=== PATIENT | female | born 1985 | race Caucasian/White ===

== ENCOUNTER → 2019-01-25 12:03 | Outpatient (CLI) | payer OTHER, SELFPAY ==
[2017-10-08 07:57] VITALS: BMI 34.2
--- NOTE | 2019-01-25 12:10 | RAD_ITS ---
STUDY: X-RAY - LEFT ANKLE REASON FOR EXAM: Female, 33 years old. Left ankle pain following a fall. TECHNIQUE: 3 view(s) of the ankle. COMPARISON: None. FINDINGS: Normal visualized distal tibia and fibula. Normal medial and lateral malleoli. Normal tibiotalar articulation and ankle mortise. Small plantar spur. The visualized subtalar, talonavicular, calcaneocuboid and tarsal articulations are normal. Lateral soft tissue swelling. RAD/Ankle min 3 Views IMPRESSION: Lateral soft tissue swelling. Electronically Signed: Lee Osborne, at 12:23 EDT , Service support ,
== END ==
PROVIDERS: Family Provider Family Medicine; PCP Family Medicine; Referring Provider Family Medicine; Visit Provider Family Medicine
DX: S93.402A Sprain of unspecified ligament of left ankle, initial encounter (principal)
CPT/HCPCS: 73610

== ENCOUNTER → 2019-04-02 11:51 | Outpatient (CLI) | payer OTHER, SELFPAY ==
[2017-10-08 07:57] VITALS: BMI 34.2
[2019-04-02 13:50] LABS: Absolute Lymphocyte Count 2.62 X10^3/uL (0.83-4.51); Absolute Neutrophil Count 5.4 X10^3/uL (2.0-7.7); Basophil# 0.06 X10^3/uL; Basophil% 0.7 % (0-1); Eosinophil# 0.09 X10^3/uL; Hematocrit 43.6 % (37-47); Hemoglobin 13.6 g/dL (12.0-15.0); Lymphocyte # 2.62 X10^3/ul (4.0); Lymphocyte % 29.6 % (19-41); Mean Corp Hgb Conc 31.2 g/dL (32-36); Mean Corpuscular Hgb 27.3 pg (27.0-32.0); Mean Corpuscular Volume 87.4 fL (81-99); Mean Platelet Vol. 9.9 fl (6.2-12.0); Monocyte# 0.63 X10^3/uL; Monocyte% 7.1 % (0-10); NRBC Flagged by Analyzer 0 % (0-5); Neutrophil # 5.42 X10^3/uL (2.7-7.7); Neutrophil % 61.4 % (47-70); Platelet Count 245 K/mm3 (150-450); RBC Distribution Width CV 13.6 % (11.6-14.6); RBC Distribution Width SD 43.6 fl (35.1-43.9); Red Blood Count 4.99 M/mm3 (4.2-5.4); White Blood Count 8.8 K/mm3 (4.4-11.0)
[2019-04-02 14:04] LABS: Anion Gap 8 (5-15); BUN 7 mg/dL (7-18); BUN/Creat Ratio 9.2 RATIO (10-20); Calcium,Total 9.2 mg/dL (8.5-10.1); Chloride 105 mmol/L (98-107); Cholesterol 227 mg/dL (200); Creatinine, Serum 0.76 mg/dL (0.55-1.02); EST Glomerular Filtration Rate 91 mL/min (>60); Est Glom Filt Rate - Afr Amer 110 mL/min (>60); Glucose 81 mg/dL (74-106); High Density Lipoprotein 48 mg/dL; Sodium Level 142 mmol/L (136-145); Triglycerides 58 mg/dL; Very Low Density Lipoprotein 12 mg/dL (5-40)
== END ==
PROVIDERS: Family Provider Family Medicine; PCP Family Medicine; Referring Provider Family Medicine; Visit Provider Family Medicine
DX: R07.89 Other chest pain (principal)
CPT/HCPCS: 36415; 80048; 80061; 85025

== ENCOUNTER 2019-10-12 10:18 | Day surgery (SDC) | payer OTHER, SELFPAY ==
[2019-09-13 10:09] VITALS: BMI 34.2
--- NOTE | 2019-09-19 02:13 | HP_ITS ---
Intake Vital Signs 09/13/19 Height 5 ft 3 in 09/13/19 Weight: 201 lb 09/13/19 BMI 35.6 09/13/19 BP 113/77 09/13/19 Blood Pressure Location Rt brachial 09/13/19 Position Sitting 09/13/19 Respiration 18 09/13/19 Pulse 63 09/13/19 Pulse Source Monitor 09/13/19 Temp 98.2 F 09/13/19 Temp Source Oral 09/13/19 Pulse Oximetry (%) 99 09/13/19 Oxygen Delivery Method room air Intake Visit Reasons: Discuss C-Scope family hx of colon cancer Educational Sign Language Interpreter Required: No Is patient in pain?: No Allergies influenza A (H5N1) virus vaccine mo Allergy (Intermediate, Verified 09/13/19 10:09) rash/chest tightness acetaminophen [From Darvocet-N] Allergy (Verified 09/13/19 10:08) Other Penicillins Allergy (Verified 09/13/19 10:08) Rash propoxyphene [From Darvocet-N] Allergy (Verified 09/13/19 10:08) Other Medications NK 10/03/17 [History Confirmed 09/13/19] PFSH Medical History Constipation (Acute) Family history of colon cancer in mother (Acute) Hemorrhoids (Acute) Surgical History History of cholecystectomy (Acute) Hx of section (Acute) Knee arthropathy (Acute) Family History (Updated 09/13/19 @ 10:06 by Deloris Medley) Mother Colon cancer High cholesterol Father CAD (coronary artery disease) Diabetes Grandmother Diabetes Heart disease Colon cancer Hypertension Grandfather Heart disease Colon cancer Sister Cancer skin cancer Social History (Updated 09/19/19 @ 14:13 by Donna Webster MD) Smoking Status: Former smoker alcohol intake: never substance use type: does not use HPI HPI HPI: PHUONG TORIBIO, is a 34 F who presents to the office today for HPI HPI Surgical H&P: Yes HPI: PHUONG TORIBIO, is a 34 F who presents to the office today for colonoscopy due to family history. Patient states that her mom was diagnosed with colon cancer age 40 for her maternal grandfather is also diagnosed in the late 50s early 60s, her maternal great grandmother was diagnosed in her later 60s. Patient has never had a colonoscopy denies any abdominal pain denies any reflux. Patient states she does have some external hemorrhoids and about 6 months ago did have some pressure pain for a few days due to that. Patient states she may have occasional constipation but typically goes almost every other day with a bowel movement. Patient denies any blood in stool. ROS General General: No weight change, appetite, fatigue, colon cancer, breast cancer or weakness HEENT HEENT: Yes eye injury; no difficulty swallowing, eye surgery, swollen glands or hoarseness Additional Details: corneal abrasion Endo Endocrine: No thyroid disease, diabetes mellitus, thyroid cancer, Hair loss, heat intolerance or cold intolerance Skin Skin: No rash or changing moles Breast Breast: No left breast lump, right breast lump, nipple discharge, breast pain, abnormal mammogram, abnormal US or breast enlargement Musc Musculoskeletal: No back problems, arthritis, rheumatoid arthritis, gout or joint pain Cardio Cardiovascular: No murmur, pacemaker, heart disease, atrial fibrillation, high blood pressure, heart attack, heart stent, palpitations, shortness of breat with exertion or chest pain Psych Psychiatric: No depression, anxiety or hearing voices Resp Respiratory: No shortness of breath, No sleep apnea, No cough, No COPD, No asthma, No emphysema, No wheezing Gastro Gastrointestinal: No abdominal pain, No nausea or vomiting, No diarrhea, Yes constipation, Yes blood in stool, No acid reflux, Yes hemorrhoids, No ulcers, Yes gallbladder problem, No black,tarry stools Geremias Hematologic: No blood thinners, No blood disorders, No bleeding, No anemia, No blood clots Neuro Neurologic: No system reviewed and no additional complaints, except as docu, No as per HPI, No abnormal walking, No abnormal hearing, No abnormal movements, No abnormal speech, No behavioral changes, No burning sensations, No confusion, No seizure-like activity, No unsteadiness, No dizziness, No localized weakness, No frequent falls, No headache(s), No lack of coordination, No loss of vision, No memory loss, No numbness, No other visual disturbances, No radiating pain, No restless legs, No sensory deficit, No fainting, No tingling, No tremor(s), No weakness, No other Exam Const General: cooperative, comfortable, no acute distress Chest Breast Palpation: No nipple discharge Resp Effort & Inspection: normal respiratory effort Cardio Rate: regular rate Heart Sounds: no murmurs GI Inspection: non-distended Palpation: soft, no guarding, nontender Neuro Cranial Nerves: CN's II-XI intact bilaterally Psych Affect: normal affect Assessment & Plan Problems 1. FH: colon cancer in relative <50 years old Z80.0 Mom was 44 and diagnosed for colon cancer, patient is due for colonoscopy screening and will be at least every 5 years Plan I have discussed the above with the patient. I have offered the patient colonoscopy for evaluation. I have explained the risks/benefits of the procedure and described the procedure. I have discussed the risks with the patient, including but not limited to: infection, bleeding, perforation of the GI tract requiring emergency surgery, inability to complete the procedure, injury to any internal organs, complications of anesthesia, etc. - the patient understands and agrees to proceed. I have answered all the patient's questions to the patient's satisfaction and the patient has no further questions. The patient has been given instructions for the colon cleansing preparation. One day of clears, MiraLAX Dulcolax split prep. Donna Webster M.D. Pager: [phone] [facility] [address] [place] [address], [facility], [address] [place] [address] Office: [phone] Orders Orders: Colonoscopy Today Plan Detail Follow Up We will schedule colonoscopy Coding Level of Care Code Off vis,new,level 3 Diagnoses FH: colon cancer in relative <50 years old Z80.0 09/19/19 1413 <Electronically signed by Donna Medina am, MD> Date _ Donna Webster MD I have re-examined the patient. There are no clinical changes since date of exam.
[2019-10-12] VITALS (13 sets, daily range): BP systolic 106–129; BP diastolic 67–84; PULSE 45–79; RESP 14–18; TEMP 36.1–36.9; O2SAT 95–100; BMI 32.8
[2019-10-12] MEDS: Lactated Ringers 1,000 ML 100 ML IV ×2 (11:01→12:21)
--- NOTE | 2019-10-12 11:46 | OP.CCLET_ITS ---
10/12/2019 Wolf Lr MD [address] [id number] Re : Colonoscopy procedure for Nav Ziegler Dear Dr. Lr This procedure was performed on Saturday, October 12, 2019. My impressions and recommendations are as follows: Impressions : - Diverticulosis in the sigmoid colon. - Internal hemorrhoids. - The entire examined colon is normal. - No specimens collected. Recommendations : - Discharge patient to home. - High fiber diet. - Continue present medications. - Repeat colonoscopy in 3 - 5 years for screening purposes. My findings are described in the full procedure note, which is enclosed. If I can be of further assistance, please feel free to contact me at Doctor phone number(s): , Work: . Sincerely, MD Donna Tomas MD 10/12/2019 11:45:36 AM This report has been signed electronically.
--- NOTE | 2019-10-12 11:46 | OP.COLON_ITS ---
Patient Name: Nav Ziegler Procedure Date: 10/12/2019 11:11 AM Date of : 1985 Age: 34 Procedure: Colonoscopy Indications: Screening in patient at increased risk: Colorectal cancer in mother before age 60--early 40s, Colon cancer screening in patient at increased risk: Family history of colorectal cancer in multiple 2nd degree relatives Providers: Donna Webster MD Referring MD: Wolf Lr MD Medicines: Monitored Anesthesia Care Patient Profile: This is a 34 year old female. Last Colonoscopy: none. The patient's first colonoscopy is today. Complications: No immediate complications. Procedure: Pre-Anesthesia Assessment: - Prior to the procedure, a History and Physical was performed, and patient medications and allergies were reviewed. The patient's tolerance of previous anesthesia was also reviewed. The risks and benefits of the procedure and the sedation options and risks were discussed with the patient. All questions were answered, and informed consent was obtained. Prior Anticoagulants: The patient has taken no previous anticoagulant or antiplatelet agents. ASA Grade Assessment: II - A patient with mild systemic disease. After reviewing the risks and benefits, the patient was deemed in satisfactory condition to undergo the procedure. After I obtained informed consent, the scope was passed under direct vision. Throughout the procedure, the patient's blood pressure, pulse, and oxygen saturations were monitored continuously. The colonoscope was introduced through the anus and advanced to the cecum, identified by the appendiceal orifice, ileocecal valve and palpation. The colonoscopy was performed without difficulty. The patient tolerated the procedure well. The quality of the bowel preparation was good. Scope In: 11:17:32 AM Scope Withdrawal Time 0 hours 11 minutes 57 seconds Scope Out: 11:34:45 AM Total Procedure Duration Time 0 hours 17 minutes 13 seconds Findings: The perianal and digital rectal examinations were normal. A single small-mouthed diverticulum was found in the sigmoid colon. Internal hemorrhoids were found. The hemorrhoids were Grade I (internal hemorrhoids that do not prolapse). The entire examined colon appeared normal. Impression: - Diverticulosis in the sigmoid colon. - Internal hemorrhoids. - The entire examined colon is normal. - No specimens collected. Recommendation: - Discharge patient to home. - High fiber diet. - Continue present medications. - Repeat colonoscopy in 3 - 5 years for screening purposes. Procedure Code(s): --- Professional --- G0105, PT, Colorectal cancer screening; colonoscopy on individual at high risk Diagnosis Code(s): --- Professional --- K64.0, First degree hemorrhoids Z80.0, Family history of malignant neoplasm of digestive organs K57.30, Diverticulosis of large intestine without perforation or abscess without bleeding CPT copyright 2017 [employer]. All rights reserved. The codes documented in this report are preliminary and upon yard supervisor review may be revised to meet current compliance requirements. MD Donna Tomas MD 10/12/2019 11:45:36 AM This report has been signed electronically. Number of Addenda: 0 Note Initiated On: 10/12/2019 11:11 AM
== END 2019-10-12 14:46 | disposition home or self-care (01) ==
LOC: EN 10:19 → AC 10:20
PROVIDERS: Family Provider Family Medicine; PCP Family Medicine; Referring Provider Family Medicine; Visit Provider Surgery
PROC: 0DJD8ZZ Inspection of Lower Intestinal Tract, Via Natural or Artificial Opening Endoscopic (ICD-10-PCS; CPT 45378; principal; 2019-10-12 11:10)
DX: Z12.11 Encounter for screening for malignant neoplasm of colon (principal); K57.30 Diverticulosis of large intestine without perforation or abscess without bleeding; K64.0 First degree hemorrhoids; Z80.0 Family history of malignant neoplasm of digestive organs; Z87.891 Personal history of nicotine dependence
CPT/HCPCS: 45378; J7120; J2405

== ENCOUNTER 2020-01-11 01:03 | Inpatient (IN) | payer OTHER, SELFPAY ==
[2019-10-12 10:43] VITALS: BMI 32.8
[2020-01-11] VITALS (12 sets, daily range): BP systolic 106–129; BP diastolic 62–72; PULSE 71–86; RESP 18–20; TEMP 36.5–37.2; O2SAT 94–100; BMI 35.3; BMI 34.7
--- NOTE | 2020-01-11 01:18 | RAD_ITS ---
STUDY: X-RAY CHEST REASON FOR EXAM: Female, 34 years old. Positive COVID with shortness of breath. TECHNIQUE: AP portable upright COMPARISON: 10/01/2014 CXR FINDINGS: Patchy peripheral groundglass densities in the mid and lower lungs bilaterally, worse on the left. No apparent consolidation, pneumothorax, or pleural effusion. Heart size normal. No concerning mediastinal or hilar lesions. No acute osseous abnormality. No evidence of free air under the diaphragm. RAD/Chest 1 View (Portable) IMPRESSION: Bilateral pneumonia, worse on the left. Electronically Signed: Jose G Quinonez, at 1:56 EDT Tel , Service support ,
--- NOTE | 2020-01-11 01:32 | ED.RN ---
PT WAS AMBULATED AROUND THE BED. PT GOT DIZZY TWICE. PT COUGHING AND SOB WHEN SITTING BACK IN BED
[2020-01-11 01:45] LABS: Absolute Lymphocyte Count 0.91 X10^3/uL (0.83-4.51); Absolute Neutrophil Count 2.2 X10^3/uL (2.0-7.7); Basophil# 0.01 X10^3/uL; Basophil% 0.3 % (0-1); Hemoglobin 12.8 g/dL (12.0-15.0); Lymphocyte # 0.91 X10^3/ul (4.0); Lymphocyte % 27.1 % (19-41); Mean Corp Hgb Conc 32.8 g/dL (32-36); Mean Corpuscular Hgb 26.8 pg (27.0-32.0); Mean Corpuscular Volume 81.8 fL (81-99); Mean Platelet Vol. 10.3 fl (6.2-12.0); Monocyte# 0.25 X10^3/uL; Monocyte% 7.4 % (0-10); NRBC Flagged by Analyzer 0 % (0-5); Neutrophil # 2.17 X10^3/uL (2.7-7.7); Neutrophil % 64.6 % (47-70); POSITIVE MORPHOLOGY YES; Platelet Count 110 K/mm3 (150-450); RBC Distribution Width SD 38.8 fl (35.1-43.9); Red Blood Count 4.77 M/mm3 (4.2-5.4); White Blood Count 3.4 K/mm3 (4.4-11.0)
[2020-01-11 01:46] LABS: Differential Indicated SCAN CRITERIA MET
[2020-01-11 02:00] LABS: Anion Gap 8 (5-15); BUN 10 mg/dL (7-18); BUN/Creat Ratio 14.7 RATIO (10-20); Calcium,Total 8.8 mg/dL (8.5-10.1); Chloride 99 mmol/L (98-107); Creatinine, Serum 0.68 mg/dL (0.55-1.02); EST Glomerular Filtration Rate 104 mL/min (>60); Est Glom Filt Rate - Afr Amer 126 mL/min (>60); Estimated Creatinine Clearance 94.61 ml/min; Glucose 99 mg/dL (74-106); Potassium 2.8 mmol/L (3.5-5.1); Sodium Level 134 mmol/L (136-145)
[2020-01-11 02:07] LABS: Differential Comment SCANNED
--- NOTE | 2020-01-11 02:09 | PCM.HP.STD ---
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 Patient tested positive for COVID-19 on 01/10/2020. She reported fever, highest T-max of 102.2F. Further she reports dry cough. Her symptom has been going on for about 6 days. Per emergency department when patient was walked although she did not have hypoxia she was profoundly dyspneic. Past Medical History Past Medical History (Chronic Problems): Chronic Problems (Last Reviewed 01/11/20 @ 04:[address] Germain Hobson MD) FH: colon cancer in relative <50 years old (Chronic) Mom was 44 and diagnosed for colon cancer, patient is due for colonoscopy screening and will be at least every 5 years Medical History: Medical History (Last Reviewed 01/11/20 @ 07:[address] Germain Hobson MD) Constipation K59.00 Family history of colon cancer in mother Z80.0 Hemorrhoids K64.9 Allergies influenza A (H5N1) virus vaccine mo Allergy (Intermediate, Verified 01/11/20 01:04) rash/chest tightness Penicillins Allergy (Verified 01/11/20 01:04) Rash propoxyphene [From Darvocet-N] Allergy (Verified 01/11/20 01:04) Other Hallucinations Home Medications: Ambulatory Orders Medication Instructions Recorded NK 10/03/17 Surgical History: Surgical History (Last Reviewed 01/11/20 @ 07:[address] Germain Hobson MD) History of cholecystectomy Z98.890, Z90.49 Hx of section Z98.891 Knee arthropathy M17.10 Smoking Status: Never smoker - *Family History Maternal Family History: Family History (Last Reviewed 01/11/20 @ 07:[address] Germain Hobson MD) Mother Colon cancer High cholesterol Father CAD (coronary artery disease) Diabetes Grandmother Diabetes Heart disease Colon cancer Hypertension Grandfather Heart disease Colon cancer Sister Cancer Review of Systems Constitutional: Reports: Anorexia, Chills, Fever. Denies: Weight Change HEENT: Denies: Head Aches, Sinus Congestion, Sinus Drainage Cardiovascular: Denies: Chest Pain, Palpitations Respiratory: Reports: Cough, Shortness of Breath. Denies: Shortness of breath at rest, Sputum production Gastrointestinal: Denies: Abdominal Pain, Nausea, Vomiting Genitourinary: Denies: Dysuria Musculoskeletal: Denies: Joint Pain, Joint Tenderness Skin: Denies: Rash, Wounds Neurological: Denies: Numbness, Tingling, Focal weakness Psychiatric: Denies: Anxiety, Depression, Homicidal Ideations, Suicidal Ideations Hematologic/ Lymphatic: Denies: Easy Bruising, Easy Bleeding VTE Information - Inpt Only VTE Present on Admission: No VTE Mechan Device Prophylaxis: None VTE Pharm Prophylaxis ordered?: Yes - Physical Exam Vitals/I&O's: Vital Signs Temp Pulse Resp BP Pulse Ox 98.3 F 75 18 118/72 94 01/11/20 01:08 01/11/20 01:08 01/11/20 01:08 01/11/20 01:08 01/11/20 01:08 Oxygen Delivery Method Room Air Weight: 90.5 kg Body Mass Index (BMI) 35.3 General: Alert, Oriented x3, Cooperative HEENT: Atraumatic, PERRLA, EOMI, Normocephalic Neck: Supple, No JVD, Negative Carotid Bruits Lungs: No rhonchi, No wheeze, Rales - Mild at the bases. Cardiovascular: Regular rate, Normal S1, Normal S2, No murmurs Abdomen: Bowel Sounds Present, Soft, Non Tender Extremities: No edema, Capillary Refill Less than 3 Seconds Skin: No rashes, No breakdown Musculoskeletal: No Tenderness to Palpation of Joints or Extremities Neurological: Cranial nerves II-XII grossly intact Psych/Mental Status: Normal Affect, Appropriate Laboratory Results 01/11/20 01:12: WBC 3.4 L, RBC 4.77, Hgb 12.8, Hct 39.0, MCV 81.8, MCH 26.8 L, MCHC 32.8, RDW Std Deviation 38.8, RDW Coeff of Saritha 13.0, Plt Count 110 L, MPV 10.3, Immature Gran % (Auto) 0.600, Neut % (Auto) 64.6, Lymph % (Auto) 27.1, [place] % (Auto) 7.4, Eos % (Auto) 0.0, Baso % (Auto) 0.3, Absolute Neuts (auto) 2.2, Absolute Lymphs (auto) 0.91, Nucleated RBC % 0, Differential Comment SCANNED 01/11/20 01:12: Sodium 134 L, Potassium 2.8 L, Chloride 99, Carbon Dioxide 27.0, Anion Gap 8, BUN 10, Creatinine 0.68, Estim Creat Clear Calc 94.61, Est GFR (MDRD) Af Amer 126, Est GFR (MDRD) Non-Af 104, BUN/Creatinine Ratio 14.7, Glucose 99, Calcium 8.8 01/11/20 01:12: Lactic Acid 1.0 Current Medications Levofloxacin (Levaquin Iv) 750 mg in 150 mls @ 100 mls/hr IV X1 ONE Stop: 01/11/20 03:35 Assessment/Plan All Active Problems (Last Reviewed 01/11/20 @ 04:[address] 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 Severe acute respiratory syndrome secondary to COVID-19 infection Supportive treatment with antitussive; and PRN Tylenol. Oxygenation to keep oxygen saturation more than 92%. Received Levaquin at emergency department. We will continue patient on Levaquin. Of note patient is allergic to penicillins. Check d-dimer. Cover 19 precautions. DVT prophylaxis Subcutaneous Lovenox. Inpatient E&M: 58516 Init Hosp L3
--- NOTE | 2020-01-11 02:18 | ED.VISSUMM ---
- ER Visit Summary Date of Service: 01/11/20 Chief Complaint: [Shortness of breath] History of Present Illness: The patient is a 34 F [ presents to the emergency department complaint shortness of breath that started today. Patient was diagnosed with COVID 19 yesterday as an outpatient. 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 Patient also describes some discomfort in her right posterior lung. She is had fever and continues to cough x6 days. Patient has no medical history otherwise.] Physical Examination: [HEENT-PERRLA, EOMI. Cranial nerves II through XII grossly intact. TMs clear. Mucous membranes moist. No adenopathy. Cardiovascular-regular rate and rhythm without murmur or ectopy Lungs-good aeration bilaterally. Patient has some faint rales in both bases. No accessory muscle use or retractions. Abdomen-normoactive bowel sounds, soft, nontender, no rebound or rigidity, no peritoneal signs. Extremities-intact ?4, normal range of motion, normal pulses, atraumatic] Test Results: [CBC with differential obtained showing a 3.4, hemoglobin 12.8, hematocrit 39, plates 110. Chemistries unremarkable. Lactate was 1.0. Chest x-ray showed bilateral infiltrates left greater than right.] Emergency Department Course and Treatment: [Patient had blood cultures ordered. Patient started on Levaquin 750 mg IV.] When patient ambulated with pulse ox her pulse ox remained around 94% however she became extremely dyspneic and tachypneic. Treatment Plan: [Admit] Disposition: [Admit] Impression: [Bilateral pneumonia COVID 19 Dyspnea] This note was generated with [employer] dictation software. It may contain incorrect words, spelling, and punctuation that were not noted in review of the chart prior to signing ED Disposition - Plan for ED Patient: Referrals: Wolf Lr MD [Primary Care Provider] -
[2020-01-11] MEDS: levoFLOXacin IV 750 MG/150 ML BAG 100 MG IV ×2 (02:30→16:15)
[2020-01-11] MEDS: guaiFENesin 1,200 MG Tablet 1200 MG PO ×2 (04:28→20:40)
[2020-01-11 07:12] LABS: D-Dimer Quantitative (DVT/PE) 3.62 FEU/ug/m (0.27-0.49)
[2020-01-11 07:21] LABS: Anion Gap 6 (5-15); BUN 9 mg/dL (7-18); BUN/Creat Ratio 17.4 RATIO (10-20); Calcium,Total 8.5 mg/dL (8.5-10.1); Chloride 103 mmol/L (98-107); Creatinine, Serum 0.52 mg/dL (0.55-1.02); EST Glomerular Filtration Rate 143 mL/min (>60); Est Glom Filt Rate - Afr Amer 173 mL/min (>60); Estimated Creatinine Clearance 123.72 ml/min; Glucose 97 mg/dL (74-106); Magnesium 2.4 mg/dL (1.6-2.6); Potassium 3.6 mmol/L (3.5-5.1); Sodium Level 133 mmol/L (136-145)
--- NOTE | 2020-01-11 07:49 | CT_ITS ---
STUDY: CTA CHEST REASON FOR EXAM: Female, 34 years old. COVID POSITIVE, SHORTNESS OF BREATH, FEVER. RADIATION DOSAGE (If Supplied By Facility): CTDIvol = ( 13.18 ) mGy, DLP = ( 407.92 ) mGycm TECHNIQUE: The examination was performed with the intravenous administration of 100cc isovue 370. Post-processing of the angiographic images was performed, with multiplanar reformation and 3D reconstruction. Individualized dose optimization techniques were used for this CT. COMPARISON: Comparison is made with prior chest radiograph done earlier in the day. FINDINGS: Normal enhancement of the main pulmonary artery and right and left pulmonary arteries. Normal enhancement of the bilateral peripheral pulmonary arteries. There is no demonstrated pulmonary embolism. Normal thoracic aorta and visualized great vessels. There is no demonstrated aortic dissection. Normal heart and pericardium. Normal mediastinum. Normal hilar regions. Normal visualized trachea and bronchi. The lungs are well expanded. Consolidation in the left lower lobe. Minimal pleural thickening. Mild increased markings at the right lung base. Normal chest wall structures. Normal osseous structures. There is diffuse fatty infiltration of the liver. CT/CTA Chest W/WO Contrast IMPRESSION: Left lower lobe consolidation with minimal pleural thickening. Mild degree of increased markings at the right lung base. Electronically Signed: Lee Osborne, at 10:18 EDT , Service support ,
[2020-01-11 08:41] LABS: Internal QC Validated? YES +Cl - CLEAR BKGD; Pregnancy, Serum, hCG Quali. NEGATIVE Negative
--- NOTE | 2020-01-11 09:33 | NURSING ---
Due to elevated Ddimer pt ordered lovenox- same to be given. Also ordered was CT scan. Policy reviewed and patient transported according to policy with mask and clean sheet. This RN called CT and spoke with Cleo at this time to notify them that patient is COVID positive and that we will be transporting her in the next 5-10 minutes. HAMMAD Cesar aware of policy and will don appropriate attire while transporting.
[2020-01-11] MEDS: Enoxaparin 100 MG/ML Syringe 90 MG SC (09:38)
[2020-01-11] MEDS: 0.9% Saline Lock 10 ML Syringe IV ×4 (10:56→18:02)
--- NOTE | 2020-01-11 11:45 | PCM.PN.HOSP ---
Reason for Visit: COVID-19 Subjective: Dyspnea on exertion. [place] ill last Tuesday and symptoms progressed. Vitals/I&O's: Vital Signs Temp Pulse Resp BP Pulse Ox 37.0 C 84 20 H 106/62 97 01/11/20 07:50 01/11/20 07:52 01/11/20 07:50 01/11/20 07:50 01/11/20 07:50 Oxygen Delivery Method Room Air Weight: 88.8 kg Body Mass Index (BMI) 34.7 Intake and Output for Last 24 Hours 01/09/20 01/10/20 01/11/20 23:59 23:59 23:59 Intake Total 300 / 300 Balance 300 / 300 General: Alert, No apparent distress HEENT: Atraumatic, Normocephalic Oral: Moist Mucosa, No Gingival or Mucosal Lesions/ Ulcerations Neck: No Nodes, Trachea Midline Lungs: - - crackles LLL Cardiovascular: Regular rate, Regular Rhythm, Normal S1, Normal S2, No murmurs Abdomen: Bowel Sounds Present, Soft, Non Tender, Non-Distended, No Hepato-splenomegaly Extremities: No edema, No Calf Tenderness Psych/Mental Status: Normal Affect, Appropriate Laboratory Results 01/11/20 01:12: WBC 3.4 L, RBC 4.77, Hgb 12.8, Hct 39.0, MCV 81.8, MCH 26.8 L, MCHC 32.8, RDW Std Deviation 38.8, RDW Coeff of Saritha 13.0, Plt Count 110 L, MPV 10.3, Immature Gran % (Auto) 0.600, Neut % (Auto) 64.6, Lymph % (Auto) 27.1, [place] % (Auto) 7.4, Eos % (Auto) 0.0, Baso % (Auto) 0.3, Absolute Neuts (auto) 2.2, Absolute Lymphs (auto) 0.91, Nucleated RBC % 0, Differential Comment SCANNED 01/11/20 01:12: Sodium 134 L, Potassium 2.8 L, Chloride 99, Carbon Dioxide 27.0, Anion Gap 8, BUN 10, Creatinine 0.68, Estim Creat Clear Calc 94.61, Est GFR (MDRD) Af Amer 126, Est GFR (MDRD) Non-Af 104, BUN/Creatinine Ratio 14.7, Glucose 99, Calcium 8.8 01/11/20 01:12: Lactic Acid 1.0 01/11/20 06:26: Sodium 133 L, Potassium 3.6, Chloride 103, Carbon Dioxide 24.0, Anion Gap 6, BUN 9, Creatinine 0.52 L, Estim Creat Clear Calc 123.72, Est GFR (MDRD) Af Amer 173, Est GFR (MDRD) Non-Af 143, BUN/Creatinine Ratio 17.4, Glucose 97, Calcium 8.5, Magnesium 2.4 01/11/20 06:26: D-Dimer Quant (PE/DVT) 3.62 H* 01/11/20 08:16: Serum , Qual NEGATIVE Current Medications Acetaminophen (Tylenol) 650 mg PO Q6H PRN PRN PRN Reason: Pain Score 1-10/Temp > 100.7 F Dextrose (D50w Syringe) 0 gm IV X1 PRN; Protocol PRN Reason: Hypoglycemia Enoxaparin Sodium (Lovenox) 40 mg SC DAILY@0600 [facility] Glucagon () 1 mg IM .X1 PRN PRN Reason: Hypoglycemia Guaifenesin (Mucinex) 1,[address] [facility] Last Admin: 01/11/20 04:28 Dose: 1,200 mg Documented by: Levofloxacin (Levaquin Iv) 750 mg in 150 mls @ 100 mls/hr IV Q24@1700 [facility] Sodium Chloride () 250 mls @ 15 mls/hr IV .[id number] PRN PRN Reason: Saline Flush Sodium Chloride () 250 mls @ 15 mls/hr IV .[id number] PRN PRN Reason: Additional IVPB Infusion Sodium Chloride () 500 mls @ 150 mls/hr IV .[id number] ONE Stop: 01/11/20 12:54 Last Admin: 01/11/20 10:56 Dose: 150 mls/hr Documented by: Ondansetron HCl (Zofran) 4 mg IV Q8H PRN PRN PRN Reason: NAUSEA/VOMITING Potassium Chloride ([facility]Dur) [facility] Stop: 01/12/20 08:01 Sodium Chloride () 10 - 40 ml IV UD PRN PRN Reason: SALINE FLUSH Last Admin: 01/11/20 10:56 Dose: 10 ml Documented by: STROKE Vital Signs/Narrative: Vital Signs Temp Pulse Resp BP Pulse Ox 01/11/20 07:52 84 01/11/20 07:50 37.0 C 86 20 H 106/62 97 Medical Necessity - Tobacco Use Smoking Status: Never smoker Assessment/Plan All Active Problems (Last Reviewed 01/11/20 @ 07:[address] Germain Hobson MD) SARS (severe acute respiratory syndrome) (Acute) COVID-19 virus infection (Acute) 1. Acute COVID-19: supportive mgmt. D-Dimer elevated, however CTA negative for PE. No ARDS seen on CT 2. Presumed pneumococcal pneumonia: CTA showed LLL infiltrate. Likely secondary to COVID-19. On Levaquin. Check sputum Cx, strep and legionella antigens. Pulmonary toilet. 3. VTE prophylaxis: LMWH. Inpatient E&M: 03877 Subs Hosp L2
--- NOTE | 2020-01-11 13:35 | CASEMGMT ---
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 No dc needs identified @ this time PCP: Dr. Lr Preferred Pharmacy: [facility] Insurance: [employer] Prescription Benefit: yes LNOK : Alex Ziegler Living Arrangements: Lives independently with family. Transportation: drives DC PLAN: anticipate home on DC. If dc needs arise, will contact pt and discuss. Yassine POTTER BSN ACM
[2020-01-12 03:00] VITALS: BP 122/65; PULSE 91; RESP 18; TEMP 37; O2SAT 95
[2020-01-12] MEDS: Enoxaparin 40 MG/0.4 ML Syringe SC (05:19)
[2020-01-12 07:49] LABS: Absolute Neutrophil Count 1.7 X10^3/uL (2.0-7.7); Basophil# 0.03 X10^3/uL; Basophil% 0.9 % (0-1); Eosinophil# 0.01 X10^3/uL; Eosinophils% 0.3 % (0-5); Hematocrit 39.2 % (37-47); Hemoglobin 12.7 g/dL (12.0-15.0); Lymphocyte % 39.5 % (19-41); Mean Corp Hgb Conc 32.4 g/dL (32-36); Mean Corpuscular Volume 83.4 fL (81-99); Mean Platelet Vol. 10.4 fl (6.2-12.0); Monocyte# 0.28 X10^3/uL; Monocyte% 8.5 % (0-10); NRBC Flagged by Analyzer 0 % (0-5); Neutrophil # 1.65 X10^3/uL (2.7-7.7); Neutrophil % 50.2 % (47-70); POSITIVE MORPHOLOGY YES; Platelet Count 120 K/mm3 (150-450); RBC Distribution Width CV 13.2 % (11.6-14.6); RBC Distribution Width SD 40.1 fl (35.1-43.9); White Blood Count 3.3 K/mm3 (4.4-11.0)
[2020-01-12 07:51] LABS: Differential Indicated SCAN CRITERIA MET
[2020-01-12 08:13] LABS: Anion Gap 8 (5-15); BUN 6 mg/dL (7-18); BUN/Creat Ratio 10.5 RATIO (10-20); Calcium,Total 8.7 mg/dL (8.5-10.1); Chloride 103 mmol/L (98-107); Creatinine, Serum 0.57 mg/dL (0.55-1.02); EST Glomerular Filtration Rate 126 mL/min (>60); Est Glom Filt Rate - Afr Amer 153 mL/min (>60); Estimated Creatinine Clearance 112.87 ml/min; Glucose 82 mg/dL (74-106); Potassium 3.6 mmol/L (3.5-5.1); Sodium Level 136 mmol/L (136-145)
[2020-01-12] MEDS: guaiFENesin 1,200 MG Tablet 1200 MG PO (08:58)
[2020-01-12 09:00] VITALS: BP 126/74; PULSE 93; RESP 18; TEMP 36.6; O2SAT 95
[2020-01-12 09:03] LABS: Reactive Lymphocyte 1+
[2020-01-12] MEDS: Acetaminophen 325 MG Tablet 650 MG PO ×2 (10:58→21:32)
--- NOTE | 2020-01-12 11:55 | PCM.PN.HOSP ---
Reason for Visit: COVID-19 and pneumonia Subjective: Breathing better. Splinting when taking a deep breath with pain in her back. Vitals/I&O's: Vital Signs Temp Pulse Resp BP Pulse Ox 36.6 C 93 18 126/74 H 95 01/12/20 09:00 01/12/20 09:00 01/12/20 09:00 01/12/20 09:00 01/12/20 09:00 Oxygen Delivery Method Room Air Weight: 88.8 kg Body Mass Index (BMI) 34.7 Intake and Output for Last 24 Hours 01/10/20 01/11/20 01/12/20 23:59 23:59 23:59 Intake Total 940 / 940 Output Total 150 / 150 Balance 790 / 790 General: Alert HEENT: Atraumatic, Normocephalic Oral: Moist Mucosa, No Gingival or Mucosal Lesions/ Ulcerations Neck: No Nodes, Trachea Midline Lungs: - - diminished in LLL. faint crackles in LLL. no egophany. Cardiovascular: Regular rate, Regular Rhythm, Normal S1, Normal S2, No murmurs Abdomen: Bowel Sounds Present, Soft, Non Tender, Non-Distended, No Hepato-splenomegaly Extremities: No edema, No Calf Tenderness Skin: No rashes, No breakdown Microbiology Past 72 Hours 01/12/20 04:10 Sputum, Expectorated/Coughed Gram Stain - Final 01/11/20 13:00 Urine, Clean Catch Streptococcus pneumoniae Antigen (M - Final 01/11/20 13:00 Urine, Clean Catch Legionella Antigen - Final Laboratory Results 01/12/20 07:32: WBC 3.3 L, RBC 4.70, Hgb 12.7, Hct 39.2, MCV 83.4, MCH 27.0, MCHC 32.4, RDW Std Deviation 40.1, RDW Coeff of Saritha 13.2, Plt Count 120 L, MPV 10.4, Immature Gran % (Auto) 0.600, Neut % (Auto) 50.2, Lymph % (Auto) 39.5, [place] % (Auto) 8.5, Eos % (Auto) 0.3, Baso % (Auto) 0.9, Absolute Neuts (auto) 1.7 L, Absolute Lymphs (auto) 1.30, Nucleated RBC % 0, Reactive Lymphocytes 1+ 01/12/20 07:32: Sodium 136, Potassium 3.6, Chloride 103, Carbon Dioxide 25.0, Anion Gap 8, BUN 6 L, Creatinine 0.57, Estim Creat Clear Calc 112.87, Est GFR (MDRD) Af Amer 153, Est GFR (MDRD) Non-Af 126, BUN/Creatinine Ratio 10.5, Glucose 82, Calcium 8.7 Current Medications Acetaminophen (Tylenol) 650 mg PO Q6H PRN PRN PRN Reason: Pain Score 1-10/Temp > 100.7 F Last Admin: 01/12/20 10:58 Dose: 650 mg Documented by: Dextrose (D50w Syringe) 0 gm IV X1 PRN; Protocol PRN Reason: Hypoglycemia Enoxaparin Sodium (Lovenox) 40 mg SC DAILY@0600 [facility] Last Admin: 01/12/20 05:19 Dose: 40 mg Documented by: Glucagon () 1 mg IM .X1 PRN PRN Reason: Hypoglycemia Guaifenesin (Mucinex) 1,200 mg PO BID [facility] Last Admin: 01/12/20 08:58 Dose: 1,200 mg Documented by: Levofloxacin (Levaquin Iv) 750 mg in 150 mls @ 100 mls/hr IV Q24@1700 [facility] Last Infusion: 01/11/20 17:53 Dose: Infused Documented by: Sodium Chloride () 250 mls @ 15 mls/hr IV .[id number] PRN PRN Reason: Saline Flush Sodium Chloride () 250 mls @ 15 mls/hr IV .[id number] PRN PRN Reason: Additional IVPB Infusion Ondansetron HCl (Zofran) 4 mg IV Q8H PRN PRN PRN Reason: NAUSEA/VOMITING Sodium Chloride () 10 - 40 ml IV UD PRN PRN Reason: SALINE FLUSH Last Admin: 01/11/20 18:02 Dose: 10 ml Documented by: STROKE Vital Signs/Narrative: Vital Signs Temp Pulse Resp BP Pulse Ox 01/12/20 09:00 36.6 C 93 18 126/74 H 95 Medical Necessity - Tobacco Use Smoking Status: Never smoker Assessment/Plan All Active Problems (Last Reviewed 01/11/20 @ 07:[address] Germain Hobson MD) SARS (severe acute respiratory syndrome) (Acute) COVID-19 virus infection (Acute) 1. Acute COVID-19: s upportive mgmt. D-Dimer elevated, however CTA negative for PE. No COVID-[address] seen on CT reviewed CT images with patient. 2. Presumed pneumococcal pneumonia: CTA showed LLL infiltrate. Likely secondary to COVID-19, though cannot definitely confirm that. On Levaquin. Check sputum Cx, strep and legionella antigens. Pulmonary toilet. 3. VTE prophylaxis: LMWH. 4. Disposition: pending overall improvement. Will reassess. Inpatient E&M: 15260 Subs Hosp L2
[2020-01-12 12:00] VITALS: O2SAT 95
[2020-01-12 16:21] VITALS: O2SAT 95
[2020-01-12] MEDS: levoFLOXacin IV 750 MG/150 ML BAG 100 MG IV (16:54)
[2020-01-12] MEDS: 0.9% Saline Lock 10 ML Syringe IV (16:55)
[2020-01-12 16:57] VITALS: BP 98/53; PULSE 55; RESP 16; TEMP 36.5; O2SAT 97
[2020-01-12 21:34] VITALS: BP 112/66; PULSE 56; RESP 18; TEMP 37.1; O2SAT 98
[2020-01-13 03:30] VITALS: BP 113/73; PULSE 60; RESP 16; TEMP 36.7; O2SAT 96
[2020-01-13] MEDS: Enoxaparin 40 MG/0.4 ML Syringe SC (06:33)
[2020-01-13] MEDS: Acetaminophen 325 MG Tablet 650 MG PO (08:35)
[2020-01-13 08:38] VITALS: BP 106/61; PULSE 55; RESP 16; TEMP 36.4; O2SAT 96
--- NOTE | 2020-01-13 10:24 | DCINST_ITS ---
You will use the following diet at home:: No restrictions Your food should be the consistency of: Regular Discharge Activity: Return to Normal Activity - ease back into your normal routine. No heavy lifting or intense exercise while on levofloxacin. Call your doctor if you observe: Fever of 101 or Higher, Shortness of breath Additional Instructions: Wear a mask around your family until January 15 or 72 hours after your last fever (as long as you are not taking fever-reducing medication)--which ever comes last. CDC guidelines for routine to work with COVID-19. Being that you have pneumonia, your return to work may be delay depending on your symptoms.: Return to Work Criteria for HCP with Suspected or Confirmed COVID-19. Symptomatic HCP with suspected or confirmed COVID-19 (Either strategy is acceptable depending on local circumstances): Symptom-based strategy. Exclude from work until: At least 3 days (72 hours) have passed since recovery defined as resolution of fever without the use of fever-reducing medications and improvement in respiratory symptoms (e.g., cough, shortness of breath); and,. At least 10 days have passed since symptoms first appeared. Test-based strategy. Exclude from work until: Resolution of fever without the use of fever-reducing medications and. Improvement in respiratory symptoms (e.g., cough, shortness of breath), and. Negative results of an FDA Emergency Use Authorized COVID-19 molecular assay for detection of SARS-CoV-2 RNA from at least two consecutive respiratory specimens collected =24 hours apart (total of two negative specimens)[1]. See Interim Guidelines for Collecting, Handling, and Testing Clinical Specimens for 2019 Novel Coronavirus (2019-nCoV). Of note, there have been reports of prolonged detection of RNA without direct correlation to viral culture. HCP with laboratory-confirmed COVID-19 who have not had any symptoms (Either strategy is acceptable depending on local circumstances): Time-based strategy. Exclude from work until: 10 days have passed since the date of their first positive COVID-19 diagnostic test assuming they have not subsequently developed symptoms since their positive test. If they develop symptoms, then the symptom-based or test-based strategy should be used. Note, because symptoms cannot be used to gauge where these individuals are in the course of their illness, it is possible that the duration of viral shedding could be longer or shorter than 10 days after their first positive test. Test- based strategy. Exclude from work until: Negative results of an FDA Emergency Use Authorized COVID-19 molecular assay for detection of SARS-CoV-2 RNA from at least two consecutive respiratory specimens collected =24 hours apart (total of two negative specimens). Note, because of the absence of symptoms, it is not possible to gauge where these individual are in the course of their illness. There have been reports of prolonged detection of RNA without direct correlation to viral culture. Allergies/Adverse Reactions: Allergies influenza A (H5N1) virus vaccine mo Allergy (Intermediate, Verified 01/11/20 01:04) rash/chest tightness Penicillins Allergy (Verified 01/11/20 01:04) Rash propoxyphene [From Darvocet-N] Allergy (Verified 01/11/20 01:04) Other Hallucinations Medications to take at Discharge Acetaminophen [Tylenol Tablet] 650 mg PO Q6H PRN PRN tablet 01/13/20 Albuterol Inhaler [Ventolin Hfa] 1 - 2 puff INHALATION Q4H PRN PRN #1 inhaler 01/13/20 Codeine Phosphate/Guaifenesin [Guaifenesin-Codeine Syrup] 10 ml PO Q6H PRN #200 ml 01/13/20 Guaifenesin [Mucinex] 1,200 mg PO BID #20 tab 01/13/20 Ibuprofen 4 tab PO Q6H PRN #1 tab 01/13/20 levoFLOXacin tablet [Levaquin tablet] 750 mg PO DAILY #5 tab 01/13/20 The following prescriptions were given: Codeine Phosphate/Guaifenesin [Guaifenesin-Codeine Syrup] 10 ml PO Q6H PRN #200 ml PRN Reason: coughing fits. Transmission Status: Sent to [facility] Ibuprofen 4 tab PO Q6H PRN #1 tab PRN Reason: pain, fever Transmission Status: Pending to [facility]24 levoFLOXacin tablet [Levaquin tablet] 750 mg PO DAILY #5 tab Transmission Status: Pending to [facility]24 Guaifenesin [Mucinex] 1,200 mg PO BID #20 tab Transmission Status: Pending to [facility]24 Albuterol Inhaler [Ventolin Hfa] 1 - 2 puff INHALATION Q4H PRN PRN #1 inhaler PRN Reason: Shortness Of Breath Transmission Status: Pending to [facility] Primary Care Physician: Wolf Lr MD [Primary Care Provider] - Within 2 Weeks Test Results: Test results from this visit will be discussed in further detail at your follow- up appointment, if applicable. Proposed Discharge Date: 01/13/20
--- NOTE | 2020-01-13 10:31 | DS.PCM_ITS ---
Discharge Date and Diagnosis Date of Admission: 01/11/20 Date of Discharge: 01/13/20 - Primary Discharge Diagnosis 1. Acute COVID-19: s * upportive mgmt. D-Dimer elevated, however CTA negative for PE. No COVID-19 ARDS pattern seen on CT * reviewed CT images with patient. 2. Presumed pneumococcal pneumonia: * CTA showed LLL infiltrate. Findings on CT consistent with bacterial pneumonia, it does not demonstrated the ARDS pattern seen in some with COVID-19. * Likely secondary to COVID-19, though cannot definitely confirm that. * On Levaquin. Check sputum Cx, strep and legionella antigens. Pulmonary toilet. - Secondary Discharge Diagnosis Chronic Problems (Last Reviewed 01/11/20 @ 07:[address] Germain Hobson MD) FH: colon cancer in relative <50 years old (Chronic) Mom was 44 and diagnosed for colon cancer, patient is due for colonoscopy screening and will be at least every 5 years Hospital Course and Treatment Imaging Results: Clinical Impression(s) from Imaging Studies Chest X-Ray 01/11/20 01:18 IMPRESSION: Bilateral pneumonia, worse on the left. Electronically Signed: Jose G Quinonez, at 1:56 EDT Tel , Service support , Chest CTA 01/11/20 07:49 IMPRESSION: Left lower lobe consolidation with minimal pleural thickening. Mild degree of increased markings at the right lung base. Electronically Signed: Lee Osborne, at 10:18 EDT , Service support , Operations: None, cholecystecomy Procedures: None Summary of Care Provided: The patient is a 34 year old F who previously tested positive for COVID-19 presents with progressive fatigue and shortness of breath. Patient had a CTA of her chest that showed a left lower lobe pneumonia. Feel that her symptoms are attributable to Monia pneumonia may have been secondary to the COVID-19. Chest x-ray is not consistent with ARDS type pattern seen with COVID-19. Discussed with the patient that her symptoms are probably most attributable to COVID-19. Patient states that her had some fever and some other mild symptoms and then resolved in her son had some conjunctivitis which is how her symptoms began when she tested positive COVID-19. Overall, no feel that her symptoms are completely related with COVID but that that she has a pneumonia which is a larger component of her symptomatology. [] - Physical Exam Vitals/I&O's: Vital Signs Temp Pulse Resp BP Pulse Ox 36.4 C L 55 L 16 106/61 96 01/13/20 08:38 01/13/20 08:38 01/13/20 08:38 01/13/20 08:38 01/13/20 08:38 Oxygen Delivery Method Room Air Weight: 88.8 kg Body Mass Index (BMI) 34.7 Intake and Output for Last 24 Hours 01/11/20 01/12/20 01/13/20 23:59 23:59 23:59 Intake Total 940 / 940 1450.25 / 1450.25 250 / 250 Output Total 150 / 150 Balance 790 / 790 1450.25 / 1450.25 250 / 250 General: Alert, No apparent distress HEENT: Atraumatic, Normocephalic Lungs: Diminished, - - crackles in LLL Cardiovascular: Regular rate, Regular Rhythm, Normal S1, Normal S2, No murmurs Microbiology Past 72 Hours 01/12/20 04:10 Sputum, Expectorated/Coughed Gram Stain - Final 01/11/20 13:00 Urine, Clean Catch Streptococcus pneumoniae Antigen (M - Final 01/11/20 13:00 Urine, Clean Catch Legionella Antigen - Final Current Medications Acetaminophen (Tylenol) 650 mg PO Q6H PRN PRN PRN Reason: Pain Score 1-10/Temp > 100.7 F Last Admin: 01/13/20 08:35 Dose: 650 mg Documented by: Dextrose (D50w Syringe) 0 gm IV X1 PRN; Protocol PRN Reason: Hypoglycemia Enoxaparin Sodium (Lovenox) 40 mg SC DAILY@0600 [facility] Last Admin: 01/13/20 06:33 Dose: 40 mg Documented by: Glucagon () 1 mg IM .X1 PRN PRN Reason: Hypoglycemia Guaifenesin (Mucinex) 1,200 mg PO BID [facility] Last Admin: 01/13/20 08:36 Dose: Not Given Documented by: Levofloxacin (Levaquin Iv) 750 mg in 150 mls @ 100 mls/hr IV Q24@1700 [facility] Last Infusion: 01/12/20 19:21 Dose: Infused Documented by: Sodium Chloride () 250 mls @ 15 mls/hr IV .[id number] PRN PRN Reason: Saline Flush Last Infusion: 01/12/20 16:56 Dose: 0 mls/hr Documented by: Sodium Chloride () 250 mls @ 15 mls/hr IV .[id number] PRN PRN Reason: Additional IVPB Infusion Ondansetron HCl (Zofran) 4 mg IV Q8H PRN PRN PRN Reason: NAUSEA/VOMITING Sodium Chloride () 10 - 40 ml IV UD PRN PRN Reason: SALINE FLUSH Last Admin: 01/12/20 16:55 Dose: 10 ml Documented by: Sodium Chloride ([place] Nasal [place]) 1 spray NASAL TID PRN PRN PRN Reason: NASAL DRYNESS Discharge Diet: No Restrictions Discharge Activity: Return to Normal Activity - ease back into your normal routine. No heavy lifting or intense exercise while on levofloxacin. Call your doctor if you observe: Fever of 101 or Higher, Shortness of breath Home Medications: Medications to take at Discharge Acetaminophen [Tylenol Tablet] 650 mg PO Q6H PRN PRN tablet 01/13/20 Albuterol Inhaler [Ventolin Hfa] 1 - 2 puff INHALATION Q4H PRN PRN #1 inhaler 01/13/20 Codeine Phosphate/Guaifenesin [Guaifenesin-Codeine Syrup] 10 ml PO Q6H PRN #200 ml 01/13/20 Guaifenesin [Mucinex] 1,200 mg PO BID #20 tab 01/13/20 Ibuprofen 4 tab PO Q6H PRN #1 tab 01/13/20 levoFLOXacin tablet [Levaquin tablet] 750 mg PO DAILY #5 tab 01/13/20 Following Prescrptions Were Given to Patient: Codeine Phosphate/Guaifenesin [Guaifenesin-Codeine Syrup] 10 ml PO Q6H PRN #200 ml PRN Reason: coughing fits. Transmission Status: Sent to [facility]24 Ibuprofen 4 tab PO Q6H PRN #1 tab PRN Reason: pain, fever Transmission Status: Pending to [facility] 1724 levoFLOXacin tablet [Levaquin tablet] 750 mg PO DAILY #5 tab Transmission Status: Pending to [facility] Guaifenesin [Mucinex] 1,200 mg PO BID #20 tab Transmission Status: Pending to [facility] Albuterol Inhaler [Ventolin Hfa] 1 - 2 puff INHALATION Q4H PRN PRN #1 inhaler PRN Reason: Shortness Of Breath Transmission Status: Pending to [facility] Primary Care Physician: Wolf Lr MD [Primary Care Provider] - Within 2 Weeks Disposition: Home Minutes spent on discharge:: 36 Patient Condition:: Good Medical Necessity - Tobacco Use Smoking Status: Never smoker Meaningful Use Info Meaningful Use Diagnoses (Choose all that apply): None applicable Inpatient E&M: 19595 [facility]
[2020-01-13] MEDS: Sodium Chloride 0.65% 1 SPRAY SPRAY.BTL NASAL (10:34)
[2020-01-13 11:15] VITALS: BP 107/60; PULSE 56; RESP 18; TEMP 36.5; O2SAT 97
[2020-01-13 12:03] VITALS: O2SAT 97
--- NOTE | 2020-01-14 16:06 | CASEMGMT ---
RN CM DC PHONE CALL DC DATE: 12.14.2019 DC DISPOSITION: Home DC DIAGNOSIS: SARS COVID 2 Intro role of CM to patient. Pt states she is feeling better, no concerns or questions. 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 No further concerns noted. Yassine DELGADON RN ACM
== END 2020-01-13 11:55 | disposition home or self-care (01) | DRG 177 ==
LOC: ED 01:51 → MS2 03:32
PROVIDERS: Admitting Provider Hospitalist; Emergency Provider Emergency Medicine; PCP Family Medicine
DX: U07.1 COVID-19 (principal); J12.81 Pneumonia due to SARS-associated coronavirus; J13 Pneumonia due to Streptococcus pneumoniae
CPT/HCPCS: 36415; 71045; 71275; 80048; 83605; 83735; 84703; 85025; 85379; 87070; 87205; 87449; 96365; 99284; J7040; J7050; Q9967; A4216

== ENCOUNTER 2021-03-19 07:18 | Outpatient (RCR) | payer OTHER, SELFPAY ==
[2020-01-11 03:55] VITALS: BMI 34.7
== END 2021-04-11 23:59 ==
LOC: EMPH 07:18
PROVIDERS: PCP Family Medicine; Referring Provider Family Medicine Geriatric Medicine; Visit Provider Family Medicine Geriatric Medicine
DX: Z03.818 Encounter for observation for suspected exposure to other biological agents ruled out (principal)
CPT/HCPCS: 87426

== ENCOUNTER → 2021-06-29 | Outpatient (CLI) | payer BC, SELFPAY | END | disposition home or self-care (01) | PROVIDERS: PCP Family Medicine; Referring Provider Family Medicine; Visit Provider Family Medicine | DX: Z20.822 Contact with and (suspected) exposure to COVID-19 (principal) | CPT/HCPCS: 87635; U0005; U0003 ==

== ENCOUNTER → 2021-07-01 12:37 | Outpatient (CLI) | payer BC, SELFPAY ==
[2021-07-01 15:08] LABS: Absolute Lymphocyte Count 2.56 X10^3/uL (0.83-4.51); Absolute Neutrophil Count 4.8 X10^3/uL (2.0-7.7); Basophil# 0.04 X10^3/uL; Basophil% 0.5 % (0-1); Eosinophil# 0.04 X10^3/uL; Eosinophils% 0.5 % (0-5); Hematocrit 38.9 % (37-47); Hemoglobin 12.8 g/dL (12.0-15.0); Lymphocyte # 2.56 X10^3/ul (0.83-4.51); Lymphocyte % 32.4 % (19-41); Mean Corp Hgb Conc 32.9 g/dL (32-36); Mean Corpuscular Hgb 27.9 pg (27.0-32.0); Mean Corpuscular Volume 84.9 fL (81-99); Monocyte# 0.47 X10^3/uL; NRBC Flagged by Analyzer 0 % (0-5); Neutrophil # 4.76 X10^3/uL (2.7-7.7); Neutrophil % 60.3 % (47-70); Platelet Count 271 K/mm3 (150-450); RBC Distribution Width CV 13.2 % (11.6-14.6); RBC Distribution Width SD 40.2 fl (35.1-43.9); Red Blood Count 4.58 M/mm3 (4.2-5.4); White Blood Count 7.9 K/mm3 (4.4-11.0)
== END ==
PROVIDERS: PCP Family Medicine; Referring Provider Family Medicine; Visit Provider Family Medicine
DX: Z20.822 Contact with and (suspected) exposure to COVID-19 (principal)
CPT/HCPCS: 36415; 85025

== ENCOUNTER → 2021-07-02 12:08 | Outpatient (CLI) | payer BC, SELFPAY ==
--- NOTE | 2021-07-02 12:11 | RAD_ITS ---
STUDY: X-RAY CHEST REASON FOR EXAM: Female, 36 years old. CHEST PAIN TECHNIQUE: PA and lateral views of the chest. COMPARISON: Comparison is made with prior study 01/11/2020. FINDINGS: The lungs are clear and expanded. There is no demonstrated pleural abnormality. Normal size heart. Normal mediastinum and jin. Normal visualized pulmonary arteries. Normal visualized aortic arch and descending thoracic aorta. Normal visualized thoracic spine. Normal visualized ribs, clavicles, and shoulders. There is no demonstrated abnormality of the visualized soft tissue structures of the upper abdomen. RAD/Chest PA and Lateral IMPRESSION: Normal x-ray examination of the chest. Electronically Signed: Lee Osborne MD at 14:13 EDT , Service support ,
[2021-07-02 15:46] LABS: Absolute Lymphocyte Count 2.59 X10^3/uL (0.83-4.51); Absolute Neutrophil Count 4.9 X10^3/uL (2.0-7.7); Basophil# 0.05 X10^3/uL; Basophil% 0.6 % (0-1); Eosinophil# 0.09 X10^3/uL; Eosinophils% 1.1 % (0-5); Hematocrit 39.6 % (37-47); Hemoglobin 12.6 g/dL (12.0-15.0); Lymphocyte # 2.59 X10^3/ul (0.83-4.51); Lymphocyte % 31.7 % (19-41); Mean Corp Hgb Conc 31.8 g/dL (32-36); Mean Corpuscular Hgb 27.4 pg (27.0-32.0); Mean Corpuscular Volume 86.1 fL (81-99); Mean Platelet Vol. 10.1 fl (6.2-12.0); Monocyte# 0.55 X10^3/uL; Monocyte% 6.7 % (0-10); NRBC Flagged by Analyzer 0 % (0-5); Neutrophil # 4.88 X10^3/uL (2.7-7.7); Neutrophil % 59.8 % (47-70); Platelet Count 290 K/mm3 (150-450); RBC Distribution Width CV 13.2 % (11.6-14.6); White Blood Count 8.2 K/mm3 (4.4-11.0)
[2021-07-02 15:58] LABS: Anion Gap 5 (5-15); BUN 9 mg/dL (7-18); BUN/Creat Ratio 12.3 RATIO (10-20); Calcium,Total 9.3 mg/dL (8.5-10.1); Chloride 108 mmol/L (98-107); Creatinine, Serum 0.73 mg/dL (0.55-1.02); EST Glomerular Filtration Rate 95 mL/min (>60); Est Glom Filt Rate - Afr Amer 114 mL/min (>60); Glucose 99 mg/dL (74-106); Potassium 3.8 mmol/L (3.5-5.1); Sodium Level 140 mmol/L (136-145); Troponin-I HS 4 pg/mL (3.0-54.0)
[2021-07-02 16:52] LABS: D-Dimer Quantitative (DVT/PE) 1.28 FEU/ug/m (0.27-0.49)
== END ==
PROVIDERS: PCP Family Medicine; Referring Provider Family Medicine; Visit Provider Family Medicine
DX: R07.9 Chest pain, unspecified (principal)
CPT/HCPCS: 36415; 71046; 80048; 84484; 85025; 85379

== ENCOUNTER 2021-07-02 17:23 | Emergency (ER) | payer BC, SELFPAY ==
[2021-07-02 17:24] VITALS: BP 149/98; PULSE 98; RESP 18; TEMP 36.7; O2SAT 98; BMI 34.9
--- NOTE | 2021-07-02 17:27 | CT_ITS ---
INDICATION: upper back pain, elevated dimer,sob EXAMINATION: CTA Chest WO/W Contrast Injection TECHNIQUE: Helically acquired images were obtained of the chest following administration of IV contrast. A radiation dose optimization technique was used for this scan. 3D postprocessing images including MIPS were reviewed. IV Contrast dosage and agent: IV 100mL [id number] COMPARISON: 01/11/2020. FINDINGS: Lungs: Unremarkable Mediastinum: The cardiomediastinal silhouette is not enlarged. No mediastinal, hilar or axillary adenopathy. The thoracic aorta is unremarkable. No obvious filling defect seen within the visualized pulmonary arteries. Pleura: Unremarkable Bones/Soft tissues: No suspicious osseous or soft tissue lesions Upper abdomen: No visualized abnormalities in the upper abdomen. CT/CTA Chest W/WO Contrast IMPRESSION: No acute abnormalities in the chest. Specifically, no evidence of acute pulmonary emboli to segmental level. Electronically Signed: Pop Baker MD at 18:42 EDT Tel , Service support ,
--- NOTE | 2021-07-02 17:45 | EDS_ITS ---
HPI History of Present Illness Chief Complaint: Abn Labs Informant: patient and PCP Onset/Context/Timing Onset: Days Context: Gradual Onset Timing: Continuous Quality: sharp Location: upper back Current Severity: Mild Maximum Severity: Moderate Worsened by: movement sometimes Relieved by: remaining still Associated Symptoms Associated Symptoms: chest/bilat flank tightness Narrative Narrative: Patient states he was not feeling well this past week, she went into the office and had a negative Covid test, today she had some labs, as 3 days ago she started having pleuritic discomfort in her upper back and tightness all the way around her flanks and chest bilaterally, with occasional brief blips of chest discomfort. Occasional PVCs that she feels nothing out of the ordinary for her, but no other palpitations, no dyspnea, no fevers or chills, feeling lightheaded on occasion but no syncope. She had some labs today that showed her D-dimer was elevated at 1.28, she had Covid about 18 months ago in December 2019, she had a D-dimer than it was over [address] angiography that was negative she is never had a DVT or PE in the past, and no recent leg pain or swelling. She was sent here to rule out pulmonary embolus with a stat CTA since they were unable to get 1 cleared by insurance as an outpatient to be done stat. [facility] Medical History (Updated 07/02/21 @ 19:[address] Kingsley Tatum MD) Constipation COVID-19 Family history of colon cancer in mother Hemorrhoids PCOS (polycystic ovarian syndrome) Pneumonia Home Medications cyclobenzaprine 10 mg PO TID PRN #20 tablet 07/02/21 [Rx Last Taken Unknown] Allergy/AdvReac Type Severity Reaction Status Date / Time influenza A (H5N1) virus Allergy Intermediate rash/chest Verified 07/02/21 17:28 vaccine mo tightness Penicillins Allergy Rash Verified 07/02/21 17:28 propoxyphene Allergy Other Verified 07/02/21 17:28 [From [facility]] Family History Mother Colon cancer High cholesterol Father CAD (coronary artery disease) Diabetes Grandmother Diabetes Heart disease Colon cancer Hypertension Grandfather Heart disease Colon cancer Sister Cancer skin cancer Surgical History History of cholecystectomy Hx of section Knee arthropathy Social History Smoking Status: Former smoker alcohol intake: never substance use type: does not use ROS ROS ED Constitutional Constitutional ED: Reports malaise; Denies chills or fever(s) Eyes Eyes: Denies change in vision or diplopia ENT ENT ED: Denies rhinorrhea or sore throat Cardiovascular Cardiovascular: Reports as per HPI, chest pain and palpitations Respiratory/Chest Respiratory/Chest: Denies cough or dyspnea Gastrointestinal Gastrointestinal: Denies abdominal pain, diarrhea, nausea or vomiting Genitourinary Genitourinary ED: Denies dysuria or hematuria Musculoskeletal Musculoskeletal: Reports back pain; Denies neck pain Integumentary Denies abscess or rash Neurologic Neurologic: Denies headache(s), paresthesias or weakness Psychiatric Psychiatric: Denies anxiety or suicidal thoughts EXAM Physical Exam Const Vital Signs: 07/02/21 17:24 07/02/21 18:17 Temperature 98.0 F Temperature Source Temporal Pulse Rate 98 Respiratory Rate 18 Respiratory Effort Non-Labored Short of Breath Respiratory Pattern Normal Blood Pressure 149/98 H Blood Pressure Mean 115 Pulse Ox 98 Oxygen Delivery Method Room Air Positive well nourished and well developed General Appearance ED: well developed and NAD HEENT Reports moist mucous membranes normocephalic and atraumatic Eyes PERRL and EOMs intact bilaterally Neck full ROM and supple Resp normal respiratory effort and clear to auscultation bilaterally Cardio regular rate, regular rhythm and no murmurs Rate: Negative for tachycardic GI non-tender and non-distended Auscultation: normoactive bowel sounds Palpation: soft Back/Spine no CVA tenderness General Back: other FROM Extremity normal to inspection and no calf tenderness General Extremety ED: Negative for edema, pulses abnormal or tenderness General Extremity: Negative for edema or pulses abnormal Neuro oriented x3, CN's II-XII intact bilaterally and no sensory deficits noted Sensorium / Orientation: awake and alert Motor Exam: strength 5/5 throughout Skin no rashes or lesions noted and no wounds MDM MDM MDM Narrative Medical decision making narrative: I reviewed the patient's labs from today, her renal function is normal, D-dimer elevated, and she does not need any other testing in order to clear her for CT angiography which was performed. It is negative as below. No other acute abnormalities. Her PCP requested if negative that I provide her a prescription for Flexeril which I think is reasonable. Patient is amenable to this and will try when she gets home and follow-up. Radiography Diagnostic Testing: Clinical Impression(s) from Imaging Studies Chest CTA 07/02/21 17:27 IMPRESSION: No acute abnormalities in the chest. Specifically, no evidence of acute pulmonary emboli to segmental level. Electronically Signed: Pop Baker MD at 18:42 EDT Tel , Service support , Discharge Plan Triage Chief Complaint: Abn Labs ED Provider: Kingsley Tatum Dx/Rx/DC Orders Clinical Impression: Intermittent chest pain, Acute upper back pain Instructions: ED Back Pain (Acute or Chronic) Prescriptions: New cyclobenzaprine [cyclobenzaprine] 10 MG tablet 10 mg PO TID PRN (Reason: Muscle Spasm) Qty: 20 RF: 0 Primary Care Provider: Wolf Lr Referrals: Wolf Lr MD [Primary Care Provider] - 3-5 Days if not improving Disposition Disposition: Home, Self Care
[2021-07-02] MEDS: 0.9% Normal Saline 1,000 ML 999 ML IV (18:15)
[2021-07-02 19:49] VITALS: BP 124/94; PULSE 56; RESP 16; O2SAT 100
--- NOTE | 2021-07-02 19:49 | ED.RN ---
REVIEWED D/C INSTRUCTIONS, FOLLOW UP CARE, PRESCRIPTION, AND S/S THAT WOULD WARRANT A RETURN TO THE ED WITH PT. PT VERBALIZED AN UNDERSTANDING AND DENIES FURTHER QUESTIONS FOR THIS RN. PT SKIN P/W/D, RESP EVEN AND UNLABORED, NO DISTRESS NOTED. PT CURRENTLY WAITING FOR PHARMACY TO DELIVER PRESCRIPTION MEDICATION.
--- NOTE | 2021-07-02 20:30 | ED.RN ---
PT AMBULATED OUT OF ED, GAIT STEADY.
== END 2021-07-02 20:31 | disposition home or self-care (01) ==
PROVIDERS: Emergency Provider Emergency Medicine; PCP Family Medicine
DX: M54.6 Pain in thoracic spine (principal); R07.81 Pleurodynia; Z87.891 Personal history of nicotine dependence
CPT/HCPCS: 71275; 96360; 99282; J7030; Q9967; A4216

== ENCOUNTER 2021-09-14 09:29 | Outpatient (CLI) | payer BC, SELFPAY ==
[2021-09-14 12:37] LABS: Vitamin D,25 Hydroxy 21.4 ng/mL
[2021-09-14 12:57] LABS: Anion Gap 7 (5-15); BUN 10 mg/dL (7-18); BUN/Creat Ratio 14.9 RATIO (10-20); Calcium,Total 9.1 mg/dL (8.5-10.1); Chloride 105 mmol/L (98-107); Cholesterol 247 mg/dL (200); Creatinine, Serum 0.67 mg/dL (0.55-1.02); EST Glomerular Filtration Rate 104 mL/min (>60); Est Glom Filt Rate - Afr Amer 126 mL/min (>60); Glucose 90 mg/dL (74-106); High Density Lipoprotein 43 mg/dL; Potassium 3.7 mmol/L (3.5-5.1); Sodium Level 138 mmol/L (136-145); Thyroid Stim Hormone (TSH) 2.41 uIU/mL (0.358-3.74); Triglycerides 125 mg/dL; Very Low Density Lipoprotein 25 mg/dL (5-40)
== END 2021-09-14 23:59 | disposition home or self-care (01) ==
PROVIDERS: PCP Family Medicine; Referring Provider Family Medicine; Visit Provider Family Medicine
DX: Z00.00 Encounter for general adult medical examination without abnormal findings (principal)
CPT/HCPCS: 36415; 80048; 80061; 82306; 84443

== ENCOUNTER 2021-11-17 06:40 | Outpatient (CLI) | payer BC, SELFPAY ==
--- NOTE | 2021-11-17 13:43 | STRESSREP ---
Stress Test Report Exercise myocardial perfusion stress test. 36-year-old lady with a history of atypical chest pain. Stress protocol: Resting EKG demonstrates normal sinus rhythm with a rate of 64 bpm normal intervals are noted. The resting blood pressure is 122/86 mmHg. The patient exercised according to regular Kodi protocol for total duration of 7 minutes. Patient completed 1 minute into stage III of the Kodi protocol the maximum heart rate attained was 173 bpm which was 95% of max impact at heart rate the maximum workload was 10.1 metabolic equivalents. At rest there were no ST or T wave changes noted suggest ischemia and at peak exercise upsloping ST changes were noted with did not meet the criteria for ischemia. No clinical angina was noted the test was terminated due to leg fatigue. Dyspnea was also noted. The peak blood pressure was 154/86 with a rate-pressure product 26,600. Myocardial perfusion protocol. 14.3 mCi of technetium 99m sestamibi was injected at rest. The patient exercised according to regular Kodi protocol and at peak exercise 44.1 mCi of technetium 99m sestamibi was injected stress images were obtained stress and rest images were reconstructed and compared in the short axis vertical long and horizontal long axis. Gated images were also obtained Perfusion SPECT analysis: Review of the stress images demonstrate normal uptake of tracer noted in all areas of the myocardium. The resting images similarly demonstrate normal uptake of tracer noted in all areas of the myocardium. No areas of reversibility are noted to suggest ischemia and no previous infarct is noted. Gated SPECT analysis: The gated ejection fraction is noted to be 82%. Conclusion: Normal exercise myocardial perfusion stress test at a high workload. Preserved ejection fraction. No clinical angina.
== END 2021-11-17 23:59 | disposition home or self-care (01) ==
LOC: NM 06:42
PROVIDERS: PCP Family Medicine; Referring Provider Family Medicine; Visit Provider Family Medicine
DX: R07.89 Other chest pain (principal)
CPT/HCPCS: 78452; 93017; A9500; A4216

== ENCOUNTER 2021-12-03 16:41 | Outpatient (CLI) | payer BC, SELFPAY ==
[2021-12-10 18:32] LABS: HPV APTIMA, High Risk Negative (Negative)
== END 2021-12-03 23:59 | disposition home or self-care (01) ==
LOC: LABSPEC 16:42
PROVIDERS: PCP Family Medicine; Referring Provider Nurse Practitioner Women's Health; Visit Provider Nurse Practitioner Women's Health
DX: Z12.4 Encounter for screening for malignant neoplasm of cervix (principal)
CPT/HCPCS: 87624; 88175; G0145

== ENCOUNTER → 2022-04-14 | Outpatient (CLI) | payer BC, SELFPAY ==
[2022-04-14 21:58] LABS: Hepatitis B Surface Antibody Reactive
[2022-04-16 18:07] LABS: QNTFERON TB Mitogen Value > 10.00 IU/mL (.); QNTFERON TB1+ Ag Value 0.44 IU/mL (.); QNTFERON TB2+ Ag Value 0.49 IU/mL (.)
[2022-04-16 20:48] LABS: QNTIFERON TB Positive Criteria Negative (Negative); V-Zoster IgG (Immunity) 1476 index (Immune >165)
== END | disposition home or self-care (01) ==
LOC: MFPLAB 15:46
PROVIDERS: PCP Family Medicine; Referring Provider Family Medicine; Visit Provider Nurse Practitioner Family
DX: Z02.1 Encounter for pre-employment examination (principal)
CPT/HCPCS: 36415; 86480; 86706; 86787

== ENCOUNTER 2022-10-01 15:53 | Outpatient (CLI) | payer BC, SELFPAY ==
[2022-10-01 17:01] LABS: NATERA MAILED SPECIMEN
== END 2022-10-01 23:59 | disposition home or self-care (01) ==
LOC: LAB 15:55
PROVIDERS: PCP Family Medicine; Visit Provider Obstetrics & Gynecology
DX: Z13.79 Encounter for other screening for genetic and chromosomal anomalies (principal); Z80.3 Family history of malignant neoplasm of breast; Z83.71 Family history of colonic polyps
CPT/HCPCS: 36415

== ENCOUNTER → 2022-10-04 | Outpatient (CLI) | payer BC, SELFPAY ==
--- NOTE | 2022-10-04 09:27 | US_ITS ---
STUDY: ULTRASOUND BREAST - RIGHT REASON FOR EXAM: Female, 37 years old. Palpable lump in the right breast. TECHNIQUE: Axial and longitudinal images of the RIGHT breast were performed with a high resolution ultrasound transducer. # OF IMAGES: 15 COMPARISON: Comparison is made with prior mammogram done earlier in the day. FINDINGS: RIGHT Breast: The inferior medial aspect of the breast was examined with ultrasound. No sonographic abnormality is seen. US/Breast Limited Unilateral IMPRESSION: No sonographic abnormality is seen. ASSESSMENT CATEGORY: BIRADS Category 1: Negative. A letter regarding these results will be sent to the patient by the facility within 30 days. Electronically Signed: Lee Osborne MD at 11:13 EST ,
--- NOTE | 2022-10-04 09:27 | BI_ITS ---
MAMMOGRAPHY - BILATERAL DIAGNOSTIC REASON FOR EXAM: Female, 37 years old. One to two-week history of a palpable lump in the deep inferior medial aspect of the right breast. PERTINENT HISTORY: Aunts with breast cancer. TECHNIQUE: Digital bilateral breast anu (3D mammographic acquisition) in the CC and MLO projections. 2-D mediolateral oblique (MLO) and craniocaudad (CC) views of both breasts were obtained. CAD: Full Field Digital Mammography with Computer Added Detection was performed. COMPARISON: None. Baseline examination. FINDINGS: Breast Composition: There are scattered areas of fibroglandular density. There are no dominant masses or suspicious calcifications. Small benign-appearing bilateral axillary lymph nodes. No other significant abnormalities are identified. BI/DIAG MAMM W/CAD, BILAT IMPRESSION: Negative diagnostic mammogram. With the patient''s history of a palpable lump in the deep inferior medial aspect of the right breast, correlation with ultrasound is recommended. ASSESSMENT CATEGORY: BIRADS Category 0: Incomplete. Need additional imaging evaluation. A letter regarding these results will be sent to the patient by the facility within 30 days. Approximately 10% of breast cancers are not detected by mammography. A normal mammogram should not delay biopsy of a clinically suspicious abnormality. Electronically Signed: Lee Osborne MD at 10:47 EST ,
== END | disposition home or self-care (01) ==
LOC: OPBI 09:25
PROVIDERS: PCP Family Medicine; Visit Provider Obstetrics & Gynecology
DX: N63.10 Unspecified lump in the right breast, unspecified quadrant (principal)
CPT/HCPCS: 76642; 77062; 77066; G0279

== ENCOUNTER → 2023-06-27 | Outpatient (CLI) | payer BC, SELFPAY ==
--- NOTE | 2023-06-27 12:40 | RAD_ITS ---
INDICATION: Kidney stone, left-sided pain EXAMINATION/TECHNIQUE: X-RAY - XR Abdomen W/ Decub and/or Erect Views: Flat and upright frontal views of abdomen COMPARISON: No relevant comparison imaging received FINDINGS: BOWEL GAS PATTERN: Non-obstructive. Prominent colonic fecal load with slightly distended rectum. FREE AIR: Not assessed on a single supine view. ORGANOMEGALY: Not seen. CALCIFICATIONS: No suspicious calcification demonstrated. Small calcified pelvic phlebolith on the right. Cholecystectomy clips and adnexal tubal ligation clips noted. LOWER CHEST: No acute pathology. BONES AND SOFT TISSUES: Mild levoscoliotic curvature of lumbar spine. Bilateral sacroiliac periarticular sclerosis. RAD/Abd Inc Decub and/or Erect IMPRESSION: 1. No definitive tract stones detected 2. Probable constipation 3. Mild scoliotic curvature of spine 4. Bilateral sacroiliitis Electronically Signed: Keagan Velásquez MD at 22:34 EDT ,
[2023-06-27 15:28] LABS: Absolute Lymphocyte Count 1.51 X10^3/uL (0.83-4.51); Absolute Neutrophil Count 5.1 X10^3/uL (2.0-7.7); Basophil# 0.03 X10^3/uL; Basophil% 0.4 % (0-1); Eosinophil# 0.04 X10^3/uL; Eosinophils% 0.6 % (0-5); Hematocrit 40.8 % (37-47); Hemoglobin 12.7 g/dL (12.0-15.0); Lymphocyte # 1.51 X10^3/ul (0.83-4.51); Lymphocyte % 21.3 % (19-41); Mean Corp Hgb Conc 31.1 g/dL (32-36); Mean Corpuscular Hgb 27.5 pg (27.0-32.0); Mean Corpuscular Volume 88.5 fL (81-99); Mean Platelet Vol. 9.8 fl (6.2-12.0); Monocyte# 0.39 X10^3/uL; Monocyte% 5.5 % (0-10); NRBC Flagged by Analyzer 0 % (0-5); Neutrophil # 5.09 X10^3/uL (2.7-7.7); Neutrophil % 71.9 % (47-70); Platelet Count 250 K/mm3 (150-450); RBC Distribution Width SD 41.8 fl (35.1-43.9); Red Blood Count 4.61 M/mm3 (4.2-5.4); White Blood Count 7.1 K/mm3 (4.4-11.0)
[2023-06-27 15:35] LABS: Anion Gap 5 (5-15); BUN 7 mg/dL (7-18); BUN/Creat Ratio 10.9 RATIO (10-20); Calcium,Total 9.1 mg/dL (8.5-10.1); Chloride 106 mmol/L (98-107); Creatinine, Serum 0.64 mg/dL (0.55-1.02); EST Glomerular Filtration Rate 108 mL/min (>60); Est Glom Filt Rate - Afr Amer 131 mL/min (>60); Glucose 121 mg/dL (74-106); Potassium 3.4 mmol/L (3.5-5.1); Sodium Level 141 mmol/L (136-145)
[2023-06-27 15:38] LABS: PTHIN 43.2 pg/mL (18.4-80.1)
== END | disposition home or self-care (01) ==
LOC: MTLAB 12:34
PROVIDERS: PCP Family Medicine; Referring Provider Family Medicine; Visit Provider Family Medicine
DX: N20.0 Calculus of kidney (principal)
CPT/HCPCS: 36415; 74019; 80048; 83970; 85025

== ENCOUNTER → 2023-08-20 | Outpatient (CLI) | payer BC, SELFPAY ==
--- NOTE | 2023-08-20 09:04 | CT_ITS ---
STUDY: CT ABDOMEN AND PELVIS WITHOUT CONTRAST REASON FOR EXAM: Female, 38 years old. L FLANK PAIN RADIATION DOSAGE (If Supplied By Facility): CTDIvol = ( 10.66 ) mGy, DLP = ( 527.23 ) mGycm TECHNIQUE: Transaxial images were obtained from the dome of the diaphragm to the symphysis pubis without oral contrast, and without intravenous contrast. Sagittal and coronal images were reconstructed. Individualized dose optimization techniques were used for this CT. COMPARISON: None. FINDINGS: The visualized lung bases are unremarkable. The visualized portions of the heart are within normal limits. Normal liver. There are surgical clips in the gallbladder fossa consistent with a prior cholecystectomy. Normal spleen. Normal pancreas. Normal bilateral adrenal glands. Normal right kidney. Normal left kidney. Normal visualized stomach. Normal small intestine. Normal colon. There is moderate stool. The appendix is visualized and appears normal. Normal abdominal aorta. Normal inferior vena cava. Normal retroperitoneum. Normal urinary bladder. Normal visualized uterus. There are tubal ligation clips. There is no free fluid in the abdomen or pelvis. Normal abdominal wall. There is lumbar levoscoliosis. There is sacroiliac sclerosis. CT/Abdomen/Pelvis without Cont IMPRESSION: No stones or hydronephrosis. No obstruction. Electronically Signed: Kingsley Ambrose MD at 15:36 EST ,
== END | disposition home or self-care (01) ==
LOC: CT 09:02
PROVIDERS: PCP Family Medicine; Referring Provider Urology; Visit Provider Urology
DX: R10.9 Unspecified abdominal pain (principal)
CPT/HCPCS: 74176

== ENCOUNTER → 2023-09-26 | Outpatient (CLI) | payer BC, SELFPAY ==
[2023-09-28 17:07] LABS: QNTFERON TB Mitogen Value > 10.00 IU/mL (.); QNTFERON TB Nil Value 0.18 IU/mL (.); QNTFERON TB1+ Ag Value 0.15 IU/mL (.); QNTFERON TB2+ Ag Value 0.17 IU/mL (.); QNTIFERON TB Positive Criteria Negative (Negative)
== END | disposition home or self-care (01) ==
LOC: MTLAB 15:25
PROVIDERS: PCP Family Medicine; Referring Provider Family Medicine; Visit Provider Family Medicine
DX: Z02.0 Encounter for examination for admission to educational institution (principal); Z02.1 Encounter for pre-employment examination
CPT/HCPCS: 36415; 86480

== ENCOUNTER → 2024-05-28 | Outpatient (CLI) | payer BC, SELFPAY | END | disposition home or self-care (01) | LOC: LABSPEC 16:27 | PROVIDERS: PCP Family Medicine; Referring Provider Nurse Practitioner Women's Health; Visit Provider Nurse Practitioner Women's Health | DX: R30.0 Dysuria (principal) ==

== ENCOUNTER → 2024-05-28 | Outpatient (CLI) | payer BC, SELFPAY | END | disposition home or self-care (01) | LOC: LABSPEC 16:26 | PROVIDERS: PCP Family Medicine; Referring Provider Nurse Practitioner Women's Health; Visit Provider Nurse Practitioner Women's Health | DX: N89.8 Other specified noninflammatory disorders of vagina (principal); R30.0 Dysuria | CPT/HCPCS: 87070; 87086; 87205 ==

== ENCOUNTER → 2024-11-26 | Outpatient (CLI) | payer BC, SELFPAY ==
[2024-11-26 13:46] LABS: Anion Gap 11 (5-15); BUN 13 mg/dL (4-19); BUN/Creat Ratio 20.1 RATIO (10-20); Calcium,Total 9.1 mg/dL (7.6-11.0); Carbon Dioxide 24.9 mmol/L (21.0-32.0); Chloride 102 mmol/L (98-108); Cholesterol 213 mg/dL (<=200); Creatinine, Serum 0.64 mg/dL (0.70-1.20); EST Glomerular Filtration Rate 114 (>60); Glucose 86 mg/dL (70-99); High Density Lipoprotein 49 mg/dL; Low Density Lipoprotein Calc. 153 mg/dL; Potassium 3.6 mmol/L (3.3-5.1); Sodium Level 139 mmol/L (133-145); Triglycerides 54 mg/dL; Very Low Density Lipoprotein 11 mg/dL (5-40); cholesterol:hdl ratio screen 4.31
== END | disposition home or self-care (01) ==
LOC: LAB 07:44
PROVIDERS: PCP Family Medicine; Referring Provider Family Medicine; Visit Provider Family Medicine
DX: Z00.00 Encounter for general adult medical examination without abnormal findings (principal)
CPT/HCPCS: 36415; 80048; 80061

== ENCOUNTER → 2025-07-17 | Outpatient (CLI) | payer BC, SELFPAY ==
--- NOTE | 2025-07-17 10:38 | ECHOD_ITS ---
Reason For Study Reason For Study: PALPITATIONS Procedure This was a 2D Doppler, Color Flow transthoracic echocardiogram. Exam performed in department. Left Ventricle Normal size and thickness. The left ventricular ejection fraction is 65 %. Normal diastololic function. Right Ventricle Normal right ventricle. Atria The left and right atria are normal. Mitral Valve Trivial mitral valve insufficiency. Tricuspid Valve Mild (1+) tricuspid valve insufficiency. Normal pulmonary artery pressure. Aortic Valve Trisinus/trileaflet aortic valve. Pulmonic Valve The pulmonic valve is not well visualized. Mild (1+) pulmonic valve insufficiency. Great Vessels Normal sized aortic root. Pericardium/Pleural No pericardial effusion. MMode/2D Measurements & Calculations LVIDd: 3.8 cm IVSd: 0.91 cm LVOT diam: 2.0 cm LVIDs: 2.2 cm LVPWd: 0.79 cm LVOT area: 3.0 cm2 RVDd: 3.1 cm FS: 43.3 % asc Aorta Diam: 3.0 cm LAV(MOD-bp): 22.2 ml LVAd ap4: 22.7 cm2 LAV(MOD-bp) Indexed: 12.0 ml/m2 LVLd ap4: 7.6 cm LAV(MOD-sp2): 22.8 ml EDV(MOD-sp4): 57.3 ml LAV(MOD-sp4): 20.8 ml EDV(sp4-el): 57.5 ml LVAs ap4: 10.6 cm2 LVLs ap4: 6.2 cm ESV(MOD-sp4): 15.9 ml ESV(sp4-el): 15.3 ml EF(MOD-sp4): 72.3 % EF(sp4-el): 73.4 % LVAd ap2: 22.5 cm2 SV(MOD-sp4): 41.4 ml SV(MOD-sp2): 38.9 ml LVLd ap2: 7.5 cm SI(MOD-sp4): 22.4 ml/m2 SI(MOD-sp2): 21.0 ml/m2 EDV(MOD-sp2): 56.0 ml EDV(sp2-el): 57.2 ml LVAs ap2: 10.7 cm2 LVLs ap2: 6.3 cm ESV(MOD-sp2): 17.1 ml ESV(sp2-el): 15.4 ml EF(MOD-sp2): 69.5 % SV(sp4-el): 42.2 ml Ao sinus diam: 2.[address] Junction: 2.3 cm LA dimension(2D): 2.8 cm LA A4 area: 10.6 cm2 RA A4 area: 9.3 cm2 TAPSE: 1.8 cm Time Measurements MV dec time: 0.22 sec Doppler Measurements & Calculations MV E max mac: 84.3 cm/sec Lat Peak E' Mac: 17.0 cm/sec Med Peak E' Mac: 11.0 cm/sec MV A max mac: 83.8 cm/sec E/E' lat: 5.0 E/E' med: 7.7 MV E/A: 1.0 MV dec slope: 375.8 cm/sec2 Ao V2 max: 171.8 cm/sec LV V1 max: 126.7 cm/sec Ao max P.8 mmHg LV V1 max P.4 mmHg Ao V2 mean: 113.9 cm/sec LV V1 mean P.1 mmHg Ao mean P.1 mmHg LV V1 mean: 81.2 cm/sec Ao V2 VTI: 32.2 cm LV V1 VTI: 25.0 cm AV (velocity ratio): 0.78 CATERINA(I,D): 2.4 cm2 CATERINA(V,D): 2.2 cm2 SV(LVOT): 76.2 ml PA V2 max: 113.9 cm/sec TR max mac: 192.5 cm/sec TR max P.8 mmHg ECHO/Echo Complete Interpretation Summary The left ventricular ejection fraction is 65 %. Mild (1+) tricuspid valve insufficiency. Mild (1+) pulmonic valve insufficiency. Ordering Physician: Rich Rodriguez Referring Physician: Wolf Lr Performed By: Eva Priest RDCS
== END | disposition home or self-care (01) ==
LOC: CVS 10:38
PROVIDERS: PCP Family Medicine; Referring Provider Internal Medicine Cardiovascular Disease; Visit Provider Internal Medicine Cardiovascular Disease
DX: R00.2 Palpitations (principal)
CPT/HCPCS: 93306